=== PATIENT | male | born 1970 | race Caucasian/White ===

== ENCOUNTER 2021-02-18 19:03 | Emergency (ER) | payer MEDICAID ==
[~2021-02-18] VITALS: Ht 175.3 cm; Wt 90.9 kg
[2021-02-18 19:22] VITALS: BP 138/90; Ht 175.3 cm; Wt 90.9 kg
[2021-02-18] MEDS ORDERED: HYDROCODON-ACE1 EAC7 PO (21:06)
[2021-02-18] MEDS ORDERED: DICLOFENAC SODI50 MG PO (21:06)
[2021-02-18] MEDS ORDERED: METHOCARBAMOL500 MG PO (21:06)
== END 2021-02-18 22:20 ==
LOC: D.ER 19:03
DX: M51.36 Other intervertebral disc degeneration, lumbar region (principal); M54.5 Low back pain; M54.16 Radiculopathy, lumbar region; E11.9 Type 2 diabetes mellitus without complications; I10 Essential (primary) hypertension

== ENCOUNTER 2021-02-23 09:37 | Emergency (ER) | payer MEDICAID ==
[~2021-02-23] VITALS: Ht 175.3 cm; Wt 93.2 kg
[~2021-02-23 09:37] MED LIST: DICLOFENAC SODI50 MG PO; HYDROCODON-ACE1 EAC7 PO; METHOCARBAMOL500 MG PO
[2021-02-23 10:06] VITALS: BP 143/95; Ht 175.3 cm; Wt 93.2 kg
[2021-02-23] MEDS ORDERED: PREDNISONE50 MG PO (10:44)
[2021-02-23] MEDS ORDERED: CYCLOBENZAPRINE10 MG PO (10:44)
== END 2021-02-23 11:57 | disposition home or self-care (01) ==
LOC: D.ER 09:37
DX: M54.41 Lumbago with sciatica, right side (principal); M47.896 Other spondylosis, lumbar region; M54.9 Dorsalgia, unspecified; E11.9 Type 2 diabetes mellitus without complications; I10 Essential (primary) hypertension